=== PATIENT | female | born 1980 | race African-American/Black ===

== ENCOUNTER 2022-02-06 04:54 | Emergency (ER) | payer OTHER ==
[~2022-02-06] VITALS: Ht 170.2 cm; Wt 86.2 kg
[2022-02-06 05:00] VITALS: TEMP 98.6
[2022-02-06 05:35] LABS: PLATELET COUNT 266 K/uL (152-353)
[2022-02-06 07:17] VITALS: BP 120/76
== END 2022-02-06 07:22 | disposition home or self-care (01) ==
LOC: ED 04:54
PROVIDERS: Emergency Medicine
DX: M54.89 Other dorsalgia (principal)
CPT/HCPCS: 36415; 80053; 81002; 81015; 81025; 85027; 96360; 96374; 96375; 99284; J2270; J2405; Q9963

== ENCOUNTER 2022-02-08 21:16 | Emergency (ER) | payer OTHER ==
[~2022-02-08] VITALS: Ht 170.2 cm; Wt 86.2 kg
[2022-02-08 21:20] VITALS: TEMP 98.6
[2022-02-08 22:33] LABS: PLATELET COUNT 287 K/uL (152-353)
[2022-02-08 22:43] LABS: POTASSIUM 4.6 mmol/L (3.6-5.2)
[2022-02-09 02:00] VITALS: BP 134/77
== END 2022-02-09 02:00 | disposition home or self-care (01) ==
LOC: ED 21:16
PROVIDERS: Hospitalist
DX: R10.84 Generalized abdominal pain (principal); K59.09 Other constipation
CPT/HCPCS: 36415; 80053; 80320; 81002; 81025; 83690; 85027; 96360; 96374; 96375; 99284; J1170; J1885; J2405